=== PATIENT | female | born 1985 ===

== ENCOUNTER 2024-01-15 13:30 | Inpatient (IN) | payer OTHER ==
[~2024-01-15] VITALS: Ht 157.5 cm; Wt 65.8 kg
[2024-01-25 07:00] VITALS: BP 106/68
[2024-01-25] MEDS ORDERED: RINGERS SOLUTION,LACTATED 1,000 ML IV SCH ×2 (07:00→11:45)
[2024-01-25] MEDS ORDERED: PRENATAL CAPLE1 EAC1 PO (07:06)
[2024-01-25 07:22] VITALS: BP 112/70
[2024-01-25 07:29] LABS: HEMATOCRIT 34.9 % (36.0-45.00); HEMOGLOBIN 12.1 g/dL (12.0-15.00); MEAN CELL VOLUME 95.1 fL (80.00-100.00); MEAN CORPUSCULAR HEMOGLOBIN 32.9 pg (27.00-32.0); MEAN CORPUSCULAR HGB CONC 34.6 g/dl (32.0-36.0); PLATELET COUNT 154 K/uL (150-450); RED BLOOD COUNT 3.67 M/uL (4.00-6.00); RED CELL DISTRIBUTION WIDTH 13.1 % (11.5-14.5)
[2024-01-25] MEDS ORDERED: MORPHINE SULFATE 4 MG/ML VIAL IV ONE ×3 (07:45→13:25)
[2024-01-25] MEDS ORDERED: OXYTOCIN 500 ML IV ONE (07:45)
[2024-01-25 07:50] LABS: INR < 0.93; PARTIAL THROMBOPLASTIN TIME 25.5 SECONDS (22.0-34.0); PROTHROMBIN TIME 10.1 SECONDS (9.0-11.5)
[2024-01-25 08:26] LABS: ALBUMIN 2.6 gm/dL (3.4-5.0); BILIRUBIN TOTAL 0.49 mg/dL (0.3-1.2); CALCIUM 8.8 mg/dL (8.5-10.1); CREATININE SERUM 0.48 mg/dL (0.55-1.02); GFR 146.34; GLOBULINA 3.7 G/DL (2.4-3.5); POTASSIUM 3.7 mEq/L (3.5-5.1); TOTAL PROTEIN 6.3 gm/dL (6.4-8.2)
[2024-01-25] MEDS ORDERED: CEFAZOLIN SODIUM 1,000 MG VIAL IV NR (09:15)
[2024-01-25] MEDS ORDERED: CITRIC ACID/SODIUM CITRATE 30 ML BLIST.PACK PO NR (09:30)
[2024-01-25] MEDS ORDERED: OXYTOCIN 1,000 ML IV ONE (11:45)
[2024-01-25] MEDS ORDERED: MORPHINE SULFATE 4 MG/ML CARTRIDGE IV PRN (11:45)
[2024-01-25] MEDS ORDERED: ONDANSETRON HCL 2 MG/ML VIAL IV SCH (12:00)
[2024-01-25] MEDS ORDERED: ACETAMINOPHEN 500 MG GEL..CAP PO SCH (12:00)
[2024-01-25] MEDS ORDERED: KETOROLAC TROMETHAMINE 30 MG VIAL IV SCH (12:00)
[2024-01-25 15:00] VITALS: BP 107/74
[2024-01-25] MEDS ORDERED: SIMETHICONE 125 MG CAPSULE PO SCH (17:00)
[2024-01-25] MEDS ORDERED: GABAPENTIN 300 MG CAPSULE PO SCH (17:00)
[2024-01-26] VITALS: BP 93/61
[2024-01-26] MEDS ORDERED: OxyCODONE HCL 5 MG TABLET (ROXICODONE) PO PRN (08:00)
[2024-01-26] MEDS ORDERED: KETOROLAC TROMETHAMINE 10 MG TABLET PO SCH (08:00)
[2024-01-26 08:28] VITALS: BP 90/60
[2024-01-26 08:40] LABS: HEMATOCRIT 23.7 % (36.0-45.00); MEAN CELL VOLUME 97.2 fL (80.00-100.00); MEAN CORPUSCULAR HGB CONC 36.6 g/dl (32.0-36.0); RED BLOOD COUNT 2.44 M/uL (4.00-6.00); RED CELL DISTRIBUTION WIDTH 13.7 % (11.5-14.5)
[2024-01-26 08:44] LABS: HEMOGLOBIN 8.7 g/dL (12.0-15.00); MEAN CORPUSCULAR HEMOGLOBIN 35.6 pg (27.00-32.0); PLATELET COUNT 127 K/uL (150-450)
[2024-01-26] MEDS ORDERED: DOCUSATE SODIUM 100MG CAP PO SCH (09:00)
[2024-01-26 16:06] VITALS: BP 100/56
[2024-01-27 00:42] VITALS: BP 99/66
[2024-01-27 08:09] VITALS: BP 113/74
[2024-01-27] MEDS ORDERED: IRON FUM,PS/FOLIC ACID/VITC/B3 1 CAP CAPSULE PO SCH (09:33)
[2024-01-27 18:13] VITALS: BP 105/71
[2024-01-28 02:02] VITALS: BP 100/69
[2024-01-28 08:00] VITALS: BP 102/67
[2024-01-28] MEDS ORDERED: PERCOCET 5-3251 EACH PO (10:57)
[2024-01-28] MEDS ORDERED: KETO10TA2 PO (10:57)
[2024-01-28] MEDS ORDERED: PNV,CALCIUM 72/IRON/FOLIC ACID 1 TAB TABLET PO SCH (12:00)
[2024-01-28 12:57] LABS: HEMATOCRIT 27.7 % (36.0-45.00); HEMOGLOBIN 9.4 g/dL (12.0-15.00); MEAN CELL VOLUME 96.9 fL (80.00-100.00); PLATELET COUNT 201 K/uL (150-450); RED BLOOD COUNT 2.86 M/uL (4.00-6.00); RED CELL DISTRIBUTION WIDTH 13.9 % (11.5-14.5)
== END 2024-01-28 13:27 | DRG 788 ==
LOC: OB/GYN 01-24 13:30 → LDR 01-25 06:45 → OB/GYN 01-25 06:45
PROVIDERS: Obstetrics & Gynecology; Obstetrics & Gynecology Maternal & Fetal Medicine; ADMIT Obstetrics & Gynecology; ATTEND Obstetrics & Gynecology
PROC: 4A1HXCZ Monitoring of Products of Conception, Cardiac Rate, External Approach (ICD-10-PCS; 2024-01-25)
PROC: 10D00Z1 Extraction of Products of Conception, Low, Open Approach (ICD-10-PCS; principal; 2024-01-25 10:30)
DX: O62.0 Primary inadequate contractions (principal); O42.02 Full-term premature rupture of membranes, onset of labor within 24 hours of rupture; O77.0 Labor and delivery complicated by meconium in amniotic fluid; Z3A.40 40 weeks gestation of pregnancy; Z37.0 Single live birth; Z20.822 Contact with and (suspected) exposure to COVID-19